=== PATIENT | female | born 1985 | race Caucasian/White ===

== ENCOUNTER 2021-07-26 20:06 | Inpatient (IN) ==
[2021-07-26] MEDS ORDERED: FAMOTIDINE 20 MG/2 ML VIAL IV ONE (21:01)
[2021-07-26] MEDS ORDERED: ePHEDrine 50 MG/ML VIAL IV PRN (21:01)
[2021-07-26] MEDS ORDERED: diphenhydrAMINE 50 MG/1 ML VIAL IV PRN ×2 (21:01)
[2021-07-26] MEDS ORDERED: hydrOXYzine HCL 25 MG/1 ML VIAL IM PRN (21:01)
[2021-07-26] MEDS ORDERED: ONDANSETRON 4 MG/2 ML VIAL IV ONE (21:01)
[2021-07-26] MEDS ORDERED: CITRIC ACID/SODIUM CITRATE 30 ML UDCUP PO ONE (21:01)
[2021-07-26] MEDS ORDERED: PROMETHAZINE 25 MG/1 ML VIAL IM ONE (21:01)
[2021-07-26] MEDS ORDERED: NALOXONE 0.4 MG/ML VIAL IV PRN (21:01)
[2021-07-26] MEDS ORDERED: LACTATED RINGERS 1,000 ML IV ONE (21:01)
[2021-07-26] MEDS ORDERED: ONDANSETRON 4 MG/2 ML VIAL IV PRN (21:02)
[2021-07-26 21:31] LABS: Basophils # 0.1 10*3/uL (0.0-0.2); Basophils % 0.4 % (0.0-0.8); Eosinophils # 0.1 10*3/uL (0.0-0.87); Eosinophils % 0.7 % (0.00-10.9); Hematocrit 42.6 VOL% (35.7-47.0); Hemoglobin 14.7 GM/DL (12.0-16.0); Immature Granulocytes % 1.3 %; Immature Granulocytes Absolute 0.19 #; Lymphocytes # 2.5 10*3/uL (1.4-4.0); Lymphocytes % 17.2 % (21.3-54.2); Mean Corpuscular HGB Conc 34.5 GM/DL (32-36); Mean Corpuscular Volume 91.2 FL (87-102); Mean Platelet Volume 9.4 FL (9.6-12.0); Neutrophils % 75.4 % (38.7-73.9); Platelet Count 269 T/CUMM (130-400); Red Blood Count 4.67 MC/CUMM (3.8-5.5); Red Cell Distribution Width 13.1 % (9.3-17.3); White Blood Count 14.3 T/CUMM (4-12)
[2021-07-26] MEDS ORDERED: MEPERIDINE 50 MG/1 ML VIAL IV PRN (21:47)
[2021-07-26] MEDS ORDERED: MEPERIDINE 50 MG/1 ML VIAL ONE (21:49)
[2021-07-26 22:03] LABS: Albumin 2.8 G/DL (3.4-5.0); Bilirubin,Total 0.7 MG/DL (0.20-1.00); Calcium 9.4 MG/DL (8.5-10.1); Potassium 3.7 MMOL/L (3.5-5.1); Total Protein 7.4 G/DL (6.4-8.2)
[2021-07-26] MEDS: LACTATED RINGERS 1,000 ML IV SCH (22:25)
[2021-07-26] MEDS: fentaNYL 2 MCG/ROPIV 0.2% EPID 100 ML EPIDURAL SCH (23:11)
[2021-07-27] MEDS ORDERED: AMPICILLIN INJ 2,000 MG in SODIUM CHLORIDE 0.9% 100 ML IV ONE (00:25)
[2021-07-27 00:51] LABS: Bacteria,Urine Occasional /HPF (Few); Bilirubin,Urine Negative (Negative); Blood, Urine Negative (Negative); Glucose,Urine (UA) Negative (Negative); Ketones,Urine 20 mg/dL (Negative); Nitrite,Urine Negative (Negative); Protein,Urine Negative; RBC,Urine <1 /HPF (0-4); Squamous Epithelial Cell,Urine Occasional /HPF (0-10); Urine Appearance CLEAR (Clear); Urine Color Yellow (Yellow); Urine Urobilinogen < 2.0 EU/DL (0.2-1.0)
[2021-07-27] MEDS ORDERED: AMPICILLIN INJ 1,000 MG in SODIUM CHLORIDE 0.9% 100 ML IV SCH (04:30)
[2021-07-27] MEDS: fentaNYL 2 MCG/ROPIV 0.2% EPID 100 ML EPIDURAL SCH (05:44)
[2021-07-27] MEDS: LACTATED RINGERS 1,000 ML IV SCH (06:26)
[2021-07-27] MEDS ORDERED: OXYTOCIN/LR 20 UNIT/1,000 ML BAG IV SCH (06:30)
[2021-07-27] MEDS ORDERED: miSOPROStoL 200 MCG TABLET ONE (08:39)
[2021-07-27] MEDS ORDERED: TRANEXAMIC ACID 1,000 MG/10 ML VIAL ONE (08:39)
[2021-07-27] MEDS ORDERED: METHYLERGONOVINE 0.2 MG/1 ML AMP ONE (08:40)
[2021-07-27] MEDS ORDERED: CARBOPROST TROMETHAMINE 250 MCG/ML AMP IM ONE (08:40)
[2021-07-27] MEDS: IBUPROFEN 800 MG TABLET PO PRN (11:01)
[2021-07-27] MEDS ORDERED: BENZOCAINE 20%/MENTHOL 0.5% SPRAY 56 GM CAN TOP PRN (14:45)
[2021-07-27] MEDS ORDERED: DIPH/TET/ACEL PERT BOOSTER VACCINE 0.5 ML VIAL IM ONE (14:45)
[2021-07-27] MEDS ORDERED: MEASLES/MUMPS/RUBELLA VACCINE 0.5 ML VIAL SUBCUT ONE (14:45)
[2021-07-27] MEDS ORDERED: LANOLIN 50% CREAM 0.3 OZ TUBE TOP PRN (14:45)
[2021-07-27] MEDS ORDERED: ACETAMINOPHEN 325 MG TABLET PO PRN (14:45)
[2021-07-27] MEDS ORDERED: OXYTOCIN/LR 20 UNIT/1,000 ML BAG IV ONE (14:45)
[2021-07-27] MEDS ORDERED: ONDANSETRON 4 MG/2 ML VIAL IV PRN (14:45)
[2021-07-27] MEDS ORDERED: HYDROCORTISONE 2.5% RECTAL CREAM 30 GM TUBE TOP PRN (14:45)
[2021-07-27] MEDS ORDERED: RHO(D) IMMUNE GLOBULIN 300 MCG SYRINGE IM ONE (14:45)
[2021-07-27] MEDS ORDERED: IBUPROFEN 800 MG TABLET PO PRN (14:45)
[2021-07-27] MEDS ORDERED: BISACODYL 10 MG SUPP RECTAL PRN (14:45)
[2021-07-27] MEDS ORDERED: WITCH HAZEL PADS 100/JAR TOP PRN (14:45)
[2021-07-27] MEDS ORDERED: ONDANSETRON 4 MG TABLET PO PRN (20:02)
[2021-07-27] MEDS: DOCUSATE SODIUM 100 MG CAPSULE PO SCH (20:16)
[2021-07-27] MEDS: oxyCODONE/ACETAMINOPHEN 5-325 MG TABLET PO PRN (20:17)
[2021-07-27] MEDS: NICOTINE 14 MG/24 HR PATCH TRANSDERM SCH (23:23)
[2021-07-28] MEDS: IBUPROFEN 800 MG TABLET PO PRN ×4 (01:17→21:25)
[2021-07-28] MEDS: oxyCODONE/ACETAMINOPHEN 5-325 MG TABLET PO PRN ×4 (01:18→21:24)
[2021-07-28 07:06] LABS: Basophils # 0.1 10*3/uL (0.0-0.2); Basophils % 0.5 % (0.0-0.8); Eosinophils # 0.2 10*3/uL (0.0-0.87); Eosinophils % 1.4 % (0.00-10.9); Hematocrit 35.2 VOL% (35.7-47.0); Hemoglobin 11.7 GM/DL (12.0-16.0); Immature Granulocytes % 1.5 %; Lymphocytes # 3.3 10*3/uL (1.4-4.0); Lymphocytes % 24.2 % (21.3-54.2); Mean Corpuscular HGB Conc 33.2 GM/DL (32-36); Mean Corpuscular Volume 92.4 FL (87-102); Mean Platelet Volume 9.4 FL (9.6-12.0); Monocytes % 4.8 % (1.7-12.7); Neutrophils % 67.6 % (38.7-73.9); Platelet Count 222 T/CUMM (130-400); Red Blood Count 3.81 MC/CUMM (3.8-5.5); Red Cell Distribution Width 13.2 % (9.3-17.3); White Blood Count 13.6 T/CUMM (4-12)
[2021-07-28] MEDS: DOCUSATE SODIUM 100 MG CAPSULE PO SCH ×3 (07:27→21:23)
[2021-07-28] MEDS: NICOTINE 14 MG/24 HR PATCH TRANSDERM SCH ×2 (09:00→21:26)
[2021-07-29] MEDS: IBUPROFEN 800 MG TABLET PO PRN (08:48)
[2021-07-29] MEDS: DOCUSATE SODIUM 100 MG CAPSULE PO SCH (08:48)
[2021-07-29 11:39] VITALS: BP 128/78
== END 2021-07-29 13:20 | disposition home or self-care (01) | DRG 807 ==
LOC: N.LDOUT 20:06 → N.LD 20:08 → N.OB 07-27 12:45
PROVIDERS: ADMIT Specialist; ATTEND Specialist